=== PATIENT | male | born 1945 | race Caucasian/White ===

== ENCOUNTER → 2017-03-24 | Outpatient (CLI) | payer MEDICARE ==
[~2017-03-24] MED LIST: ADVAIR 2501 DISK W/D PO; ALBUTEROL17 GM INH; ALPRAZOLAM PO; ASPIRIN PO; ATROVENT 0.03%30 ML; COMBIVENT INH14.7 GM INH; COREG PO; DOXYCYCLINE PO; FOLIC ACID PO; FOSINOPRIL PO; KLONOPIN0.5 M1 PO; LIPITOR PO; NEXIUM PO; PANTOPRAZOLE SO40 MG PO; PAXIL PO; PERCOCET; SINGULAIR PO; SLOW FE160 MG PO; SPIRIVA18 MCG INH; SYMBICORT 80-10.2 GM
--- NOTE | ~2017-03-24 | EKG ---
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
--- NOTE | ~2017-03-24 | TT ---
Unit #: [id number] #: [id number] Patient: MARLENA MCGHEE [id number] [address] [address] [id number] MR#: [id number] NAME: MARLENA MCGHEE. : 1945 SEX: M STUDY DATE/TIME: 04/07/2017 UNIT: [facility] ROOM: STUDY DESCRIPTION: TT Attending Physician: Lior Kwan M.D. Referring Physician: Lior Kwan M.D. Primary Care Physician: Nav Joaquin M.D. CARDIOLOGY REPORT EXAM Tilt table test. FINDINGS Patient was brought to the tilt table room. Baseline vital signs were recorded that showed a blood pressure of 120/66 and pulse rate of 55 per minute. Rhythm strip revealed normal sinus rhythm with intraventricular conduction delay and occasional PVCs, some in couplets. There were short runs of supraventricular tachycardia lasting up to four beats. No significant slowing of the heart rate was noted. Patient was placed in a 70-degree head-up tilt for 20 minutes and there was no significant change in the heart rate or blood pressure. Next, 0.4 mg of sublingual nitroglycerin was given which dropped the blood pressure to 80/40 mm with appropriate rise in the heart rate to 89 beats per minute. Blood pressure remained low for the next 20 minutes, never going above 100 mmHg systolic. The patient remained asymptomatic except for mild headache. No significant worsening of arrhythmias was noted. There was no syncope or near syncope. These findings suggest low probability of vasodepressive syncope. IMPRESSION Tilt table study suggest no evidence of vasodepression as a cause of near syncope reported at home. ADDITIONAL JOB #: [id number] Dictated by... Arlen SimonU/tika TD: 04/07/2017 15:18 JOB #: [id number] Unit #: [id number] #: [id number] Patient: MARLENA MCGHEE CARDIOLOGY REPORT Page 1 of 1 X Lior Kwan MD CARDIOLOGY REPORT
== END | disposition home or self-care (01) ==
LOC: CECH 09:59
DX: R55 Syncope and collapse (principal); R06.02 Shortness of breath
CPT/HCPCS: 93005; 93660